=== PATIENT | male | born 1985 | race Caucasian/White ===

== ENCOUNTER 2017-10-22 18:09 | Emergency (ER) | payer OTHER ==
[2017-10-22 19:11] LABS: BASOPHIL % 0.9 % (0-2); PLATELET COUNT 335 x10^3mcL (130-400); RED CELL DISTRIBUTION WIDTH 13.9 % (11.5-14.5)
[2017-10-22 19:26] LABS: CALCIUM 8.9 mg/dL (8.5-10.1); CARBON DIOXIDE 25.4 mmol/L (21-32); CHLORIDE SERUM 104 mmol/L (98-107); CREATININE SERUM 1.1 mg/dL (0.7-1.3); GFR1 > 60 mL/min; GLUCOSE SERUM 93 mg/dL (74-106); POTASSIUM SERUM 3.5 mmol/L (3.5-5.1); SODIUM SERUM 140 mmol/L (136-145)
[2017-10-22 19:33] LABS: ALBUMIN 3.6 g/dL (3.4-5.0); ALKALINE PHOSPHATASE 75 U/L (46-116); ALT/SGPT 36 U/L (16-63); AST/SGOT 23 U/L (15-37); BILIRUBIN TOTAL 0.24 mg/dL (0.20-1.00); TOTAL PROTEIN, SERUM 7.5 g/dL (6.4-8.2)
[2017-10-22 19:43] LABS: T3 TOTAL 1.05 ng/mL
[2017-10-22 19:57] LABS: FREE THYROXINE INDEX 2.3 ug/dL (1.4-4.5); T4(THYROXINE) 7.1 ug/dL (4.7-13.3)
[2017-10-22 20:03] LABS: AMPHETAMINE QUAL UR NONE DETECTED (NEG <=1000)
[2017-10-22 23:00] VITALS: BP 127/67
== END 2017-10-22 23:00 | disposition home or self-care (01) ==
LOC: ED 18:09
PROVIDERS: Emergency Medicine
DX: R07.89 Other chest pain (principal); R00.2 Palpitations
CPT/HCPCS: 83880; 84439; 85378; G0480; J2060; J7030

== ENCOUNTER 2018-03-15 21:26 | Emergency (ER) | payer OTHER ==
[~2018-03-15] VITALS: Ht 177.8 cm; Wt 88.0 kg
[2018-03-15 21:59] VITALS: BP 143/91; Ht 177.8 cm; Wt 88.0 kg
== END 2018-03-15 23:12 | disposition home or self-care (01) ==
LOC: ED 21:26
DX: M46.1 Sacroiliitis, not elsewhere classified (principal); R03.0 Elevated blood-pressure reading, without diagnosis of hypertension; V43.52XA Car driver injured in collision with other type car in traffic accident, initial encounter; Y93.I9 Activity, other involving external motion; Y92.488 Other paved roadways as the place of occurrence of the external cause; Y99.8 Other external cause status; Y92.89 Other specified places as the place of occurrence of the external cause